=== PATIENT | male | born 1955 | race Caucasian/White ===

== ENCOUNTER 2017-07-25 16:06 | Outpatient (CLI) | payer OTHER | END 2017-07-25 16:07 | disposition home or self-care (01) | LOC: CTENTCT 16:06 | PROVIDERS: ATTEND Specialist | DX: J32.9 Chronic sinusitis, unspecified (principal) | CPT/HCPCS: 70486 ==

== ENCOUNTER 2018-08-07 13:03 | Outpatient (CLI) | payer MEDICARE, OTHER ==
--- NOTE | 2018-08-07 14:54 | CT ---
CT ABDOMEN AND PELVIS WITHOUT CONTRAST: Date: 08/07/18 PROVIDED CLINICAL HISTORY: Renal calculi. FINDINGS: Comparison made with the study dated 10/02/09. The visualized lung bases are free of significant opacity. There is a stable 4.0 mm nonobstructing left renal calculus. No additional urinary tract calculi are evident. The solid abdominal organs are suboptimally evaluated in the absence of IV contrast material , but demonstrate an otherwise unremarkable unenhanced CT appearance. Multiple gallstones are seen. There is no bowel dilatation, inflammatory fat stranding, free fluid, or lymph node enlargement appar ent. Vascular calcifications are seen. Prostate calcifications are seen. The osseous structures demonstrate no concerning lytic or blastic l esions. Postoperative changes are seen involving the lumbar spine. There is a small, fat-containing r ight inguinal hernia. IMPRESSION: 1. Stable 4.0 mm nonobstructing left renal calculus. 2. Cholelithiasis. POS: [facility]
== END 2018-08-07 13:04 | disposition home or self-care (01) ==
LOC: BICCT 13:03
PROVIDERS: ATTEND Urology
DX: N20.0 Calculus of kidney (principal); K80.20 Calculus of gallbladder without cholecystitis without obstruction
CPT/HCPCS: 74176

== ENCOUNTER 2019-08-24 12:30 | Outpatient (CLI) | payer MEDICARE, OTHER ==
--- NOTE | 2019-08-24 12:58 | RAD ---
XR Abdomen 1 View/KUB History: Renal calculi Comparison: CT examination 2018 Findings: Small calculi project over the interpolar left renal collecting system. No definite calculi project over the right renal collecting system. No abnormal calcifications projecting over the expected location of the ureters. Calcifications are noted over the pelvis, likely within the prostate. Posterior spinal fusion hardwar e with discectomy change lower lumbar spine. Impression: Similar appearance left renal calculus.
[2019-08-24 13:59] LABS: Anion Gap 16 mmol/L (10-20); BUN (Urea Nitrogen) 15 mg/dL (8.4-25.7); Calc. Creatinine Clearance 0 mL/min (70-130); Carbon Dioxide 21 mmol/L (23-31); Chloride 108 mmol/L (98-107); Estimated GFR-MDRD 54; Glucose 119 mg/dL (80-115); Potassium 4.3 mmol/L (3.5-5.1); Sodium 141 mmol/L (136-145)
== END 2019-08-24 12:31 | disposition home or self-care (01) ==
LOC: RAD 12:30
PROVIDERS: ATTEND Urology
DX: Z12.5 Encounter for screening for malignant neoplasm of prostate (principal); N20.0 Calculus of kidney; N40.1 Benign prostatic hyperplasia with lower urinary tract symptoms; N52.9 Male erectile dysfunction, unspecified; R39.11 Hesitancy of micturition
CPT/HCPCS: 74018; 80048; G0103; 36415; 81001

== ENCOUNTER 2019-08-26 15:11 | Outpatient (CLI) | payer MEDICARE, OTHER ==
[2019-08-26 16:57] LABS: INR-International Normal Ratio 1.2; PTT 30.6 SEC (22.9-36.1); Prothrombin Time 14.8 SEC (12.0-14.7)
[2019-08-26 16:59] LABS: Hemoglobin A1c 6.9 % (4.0-6.0)
[2019-08-26 17:13] LABS: Anion Gap 16 mmol/L (10-20); BUN (Urea Nitrogen) 15 mg/dL (8.4-25.7); Calc. Creatinine Clearance 0 mL/min (70-130); Calcium 9.5 mg/dL (7.8-10.44); Carbon Dioxide 21 mmol/L (23-31); Chloride 105 mmol/L (98-107); Estimated GFR-MDRD 54; Glucose 211 mg/dL (80-115); Potassium 4.1 mmol/L (3.5-5.1); Sodium 138 mmol/L (136-145)
[2019-08-26 17:24] LABS: Hemoglobin 16.4 g/dL (14.0-18.0); Mean Corpuscular HGB CONC 34.5 g/dL (32.0-36.0); Mean Corpuscular Hemoglobin 33.4 pg (27.0-31.0); Mean Corpuscular Volume 96.6 fL (78.0-98.0); Mean Platelet Volume 9.7 fL (7.4-10.4); Platelet Count 101 thou/uL (130-400); RBC Distribution Width 12.1 % (11.5-14.5); White Blood Cell (WBC) Count 4.6 thou/uL (4.8-10.8)
== END 2019-08-26 15:12 | disposition home or self-care (01) ==
LOC: LABBT 15:11
PROVIDERS: ATTEND Urology
DX: Z01.812 Encounter for preprocedural laboratory examination (principal); Z12.5 Encounter for screening for malignant neoplasm of prostate; N40.1 Benign prostatic hyperplasia with lower urinary tract symptoms; N20.0 Calculus of kidney; R39.11 Hesitancy of micturition; R39.15 Urgency of urination; N52.9 Male erectile dysfunction, unspecified; E11.22 Type 2 diabetes mellitus with diabetic chronic kidney disease; N18.9 Chronic kidney disease, unspecified
CPT/HCPCS: 80048; 83036; 85027; 85610; 85730; 93005; 93010

== ENCOUNTER 2019-09-01 08:53 | Day surgery (SDC) | payer MEDICARE, OTHER ==
[2019-08-26 15:35] VITALS: BMI 29.0
[2019-09-01] MEDS ORDERED: PROPOFOL 200 MG/20 ML VIAL ONE (09:42)
[2019-09-01] MEDS ORDERED: Lidocaine 1% PF 5 ML VIAL ONE (09:42)
[2019-09-01] MEDS ORDERED: ePHEDrine/0.9% NaCl/PF SYRINGE 50 mg/10 ml ONE ×2 (09:42→12:07)
[2019-09-01] MEDS ORDERED: Levofloxacin 500 mg/D5W 100 ml Premix Bag ONE (10:09)
[2019-09-01] MEDS ORDERED: Fentanyl 100 MCG/2 ML VIAL ONE (11:09)
[2019-09-01] MEDS ORDERED: Phenazopyridine HCl 97.5 MG TABLET ONE (13:08)
[2019-09-01] MEDS ORDERED: HYDROcodone/Acetaminophen 5/325 mg Tablet ONE (13:08)
--- NOTE | 2019-09-01 13:59 | OP ---
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 PROCEDURES PERFORMED: Cystoscopy, UroLift implant. ANESTHESIA: TIVA. COMPLICATIONS: None apparent. DISPOSITION: To recovery room in stable condition. INDICATIONS FOR PROCEDURE AND HISTORY: Mr. Sherwood is a 64-year-old male with history of BPH symptoms on Uroxatral, continues to be bothered by retrograde ejaculation, therefore desires options of proceeding with UroLift as he desires to be off his medical therapy. The patient also has frequency, urgency. I informed the patient that as he does have glucosuria medication induced, frequency or urgency, it is likely multifactorial and may persist despite BPH surgery. With all risks and benefits outlined including options of observation, he desires to proceed with UroLift. Risks and complication have been discussed with him in detail. DESCRIPTION OF PROCEDURE: After an informed consent was signed, the patient was taken to the operating room, placed in a dorsal lithotomy position with the genital area prepped and draped in the usual surgical sterile fashion. A 21-Lebanese cystoscope was utilized for cystoscopy, which demonstrated occult bulbar urethral stricture, however, this was nonobstructing and the scope was easily able to be passed. At this time, the prostatic urethra was entered and staged and appropriate intraoperative photos were taken demonstrating bilobar hyperplasia, mildly obstructing. The bladder was entered, which demonstrated normal ureteral orifices in anatomical location with bladder trabeculation consistent with chronic outlet obstruction. We then transitioned to UroLift device with a visual obturator. We implanted the left lateral lobe first. His prostatic urethra was treated with two implants on the left, four on the right with total of 6 implants. His prostate appeared to be quite mobile/ soft, therefore four implants were utilized on the right to appropriately raise left his prostatic urethra opening for wide bladder neck. He tolerated the procedure well. An 18-Lebanese 3-way Barakat catheter was placed. He did have prostatic urethral mucosa inflammation, given such indwelling Barakat catheter will be placed and remained in situ until tomorrow and anticipate Barakat catheter to be removed tomorrow morning for a voiding trial. He is discharged with Levaquin 500 mg one p.o. daily for 3 days, Azo p.r.n. for dysuria. He is advised to continue his BPH medications for now. Job ID: [id number] MTDD
[2019-09-01] MEDS ORDERED: Lidocaine Viscous Sol 2% 15 ml UD Cup ONE (14:11)
== END 2019-09-01 14:55 | disposition home or self-care (01) ==
LOC: SDC 08:53
PROVIDERS: ATTEND Urology
PROC: 0T7D8DZ Dilation of Urethra with Intraluminal Device, Via Natural or Artificial Opening Endoscopic (ICD-10-PCS; principal; 2019-09-01)
DX: N40.1 Benign prostatic hyperplasia with lower urinary tract symptoms (principal); R35.0 Frequency of micturition; R39.15 Urgency of urination; R39.11 Hesitancy of micturition; R35.1 Nocturia; R39.12 Poor urinary stream; N52.9 Male erectile dysfunction, unspecified; N20.0 Calculus of kidney; I10 Essential (primary) hypertension; E78.00 Pure hypercholesterolemia, unspecified; J45.909 Unspecified asthma, uncomplicated; K21.9 Gastro-esophageal reflux disease without esophagitis; M19.90 Unspecified osteoarthritis, unspecified site; F41.9 Anxiety disorder, unspecified; G89.29 Other chronic pain; M54.5 Low back pain; E78.5 Hyperlipidemia, unspecified; G47.33 Obstructive sleep apnea (adult) (pediatric); Z79.4 Long term (current) use of insulin; Z79.899 Other long term (current) drug therapy; Z88.8 Allergy status to other drugs, medicaments and biological substances; Z95.5 Presence of coronary angioplasty implant and graft
CPT/HCPCS: C1889; C9740; J1956; J2001; J2704; J3010

== ENCOUNTER 2019-10-19 15:00 | Outpatient (CLI) | payer MEDICARE, OTHER ==
--- NOTE | 2019-10-20 10:35 | MRI ---
MRI OF THE RIGHT THUMB WITHOUT CONTRAST: Date: 10/19/2019 INDICATION: History of injury to digital nerve of right thumb with complaints of right thumb pain and difficulty bending the right thumb. Palpable nodule is reportedly felt at the base of the thumb marked with a sanchez rface marker. COMPARISON: None. FINDINGS: Surface marker overlies the palmar aspect of the thumb MCP joint. Underlying this is an intact flexor tendon to the right thumb. There is a very small amount of fluid distention into the flexor tendon s khoi. No full thickness disruption is evident. The thenar musculature appears within normal limits. No visible soft tissue mass is noted. The radial digital neurovasculature appears within normal limit s. The ulnar aspect of the digital neurovascular of the thumb is not as well seen. The extensor tendo n appears intact. The adductor tendon appears intact. The ulnar collateral and radial collateral liga ment MCP as well as collateral ligament of IP joint appears intact. There is mild first CMC osteoarth rosis. IMPRESSION: 1. Mild flexor tendon synovitis of the FPL. 2. Mild first CMC osteoarthrosis. POS: [facility]
== END 2019-10-19 15:01 | disposition home or self-care (01) ==
LOC: BICMRI 15:00
PROVIDERS: ATTEND Orthopaedic Surgery Hand Surgery
DX: S64.40XA Injury of digital nerve of unspecified finger, initial encounter (principal); M18.11 Unilateral primary osteoarthritis of first carpometacarpal joint, right hand; M65.841 Other synovitis and tenosynovitis, right hand

== ENCOUNTER 2020-09-22 05:55 | Day surgery (SDC) | payer MEDICARE, OTHER ==
[2020-09-20 11:27] VITALS: BMI 29.0
[2020-09-22] MEDS ORDERED: Thrombin 5000 UNITS/5 ML VIAL ONE (06:35)
[2020-09-22] MEDS ORDERED: Ondansetron PF 4 MG/2 ML Vial ONE ×2 (07:12→11:25)
[2020-09-22] MEDS ORDERED: Fentanyl 100 MCG/2 ML VIAL ONE ×2 (07:13→11:54)
[2020-09-22] MEDS ORDERED: Midazolam HCl 2 mg/2 ml Vial ONE (07:13)
[2020-09-22] MEDS ORDERED: HYDROmorphone 2 MG/ML VIAL ONE (07:14)
[2020-09-22] MEDS ORDERED: Ketamine 50 MG/ML (10ML VIAL) ONE (07:14)
[2020-09-22] MEDS ORDERED: SUGAMMADEX SODIUM 200 MG/2 ML VIAL ONE (09:57)
[2020-09-22] MEDS ORDERED: Acetaminophen/Codeine 30-300mg Tablet PO PRN (09:59)
[2020-09-22] MEDS ORDERED: traMADol HCl 50 MG TAB PO PRN (09:59)
[2020-09-22] MEDS ORDERED: Bisacodyl 10 MG SUPP PR PRN (09:59)
[2020-09-22] MEDS ORDERED: Acetaminophen 325 MG TAB PO PRN (09:59)
[2020-09-22] MEDS ORDERED: tiZANidine HCl 4 MG TAB PO PRN (09:59)
[2020-09-22] MEDS ORDERED: Morphine 2 MG/ML VIAL SLOW IVP PRN (09:59)
[2020-09-22] MEDS ORDERED: Ondansetron PF 4 MG/2 ML Vial IVP PRN (09:59)
[2020-09-22] MEDS ORDERED: Milk Of Magnesia 30 ML UDCUP PO PRN (09:59)
[2020-09-22] MEDS ORDERED: Loratadine 10 MG TAB PO PRN (10:02)
[2020-09-22] MEDS ORDERED: Diclofenac 1% 100 GM GEL TP PRN (10:02)
[2020-09-22] MEDS ORDERED: SUMAtriptan Succinate 25 MG TAB PO PRN (10:02)
[2020-09-22] MEDS ORDERED: Ondansetron HCl/PF 4 MG/2 ML Vial IVP PRN (10:15)
[2020-09-22] MEDS ORDERED: Promethazine HCl 25 MG/ML VIAL IM PRN (10:15)
[2020-09-22] MEDS ORDERED: HYDROmorphone 2 MG/ML VIAL SLOW IVP PRN (10:15)
[2020-09-22] MEDS ORDERED: Meperidine HCl/PF 25 MG/ML VIAL SLOW IVP PRN (10:15)
[2020-09-22] MEDS ORDERED: Morphine Sulfate 2 MG/ML SYRINGE SLOW IVP PRN (10:15)
--- NOTE | 2020-09-22 10:25 | OP ---
DATE OF PROCEDURE: 09/22/2020 PREPARED FOODS ASSOCIATE: Katrina Garcia PA-C LOCATION: OR-11. PREPROCEDURE DIAGNOSES: Low back and leg pain with disk extrusion laterally, prior lumbar instrumented fusion at outside institution with proximal adjacent segment stenosis. POSTPROCEDURE DIAGNOSES: Low back and leg pain with disk extrusion laterally, prior lumbar instrumented fusion at outside institution with proximal adjacent segment stenosis. PROCEDURES PERFORMED: 1. L2-L3 laminectomy, partial facetectomy, foraminotomy. 2. Right L2-L3 transfacet diskectomy for decompression of the exiting right L2 nerve root with lateral and far-lateral decompression, transfacet diskectomy. A modifier 59 should be added to this component of the surgery as this was separate from the L2-L3 laminectomy. 3. Bilateral L3-L4 revision hemilaminotomies and foraminotomies. 4. Use of operative microscope for microdissection and then also modifier 50 should be added as this was bilateral surgery at L3-L4. DESCRIPTION OF PROCEDURE: After informed consent was obtained from the patient, the patient was brought to the OR. Proper patient, pause, and identification were carried out. He was placed under excellent general endotracheal anesthesia and positioned prone on the OR table. All appropriate points were padded. We identified the L2, L3, L4 dorsal spines. A linear jamil was made over this region. This area was sterilely cleansed, prepared, and draped. Proper patient, pause, and identification were carried out. The wound was then opened with a combination of sharp, monopolar, and blunt dissection. The L2, L3, L4 dorsal spines and lamina were exposed. Revision work was identified in the L3-L4 segment. We then identified with localization confirming our area of interest, then performed L2-L3 laminectomy, partial facetectomy, foraminotomy. We then turned our attention to a right L2-L3 transfacet diskectomy with work in the exiting right L2 foramen to decompress the lateral disk extrusion, the far-lateral disk extrusion at the right L2-L3 segment via transfacet diskectomy. We then turned our attention to bilateral L3-L4 revision hemilaminotomy, foraminotomy, although this was done with the microscope for microdissection. We then had excellent decompression of common dural tube and nerve roots. Copious irrigation occurred throughout as did maximizing hemostasis. The wound was then closed in anatomic layers following sprinkling of vancomycin powder. The patient emerged from anesthesia. Job ID: [id number]
[2020-09-22] MEDS ORDERED: Ketorolac Tromethamine 30 MG/ML VIAL ONE (11:25)
[2020-09-22] MEDS ORDERED: PROPOFOL 200 MG/20 ML VIAL ONE (11:25)
[2020-09-22] MEDS ORDERED: Glycopyrrolate 0.2 MG/ML 5 ML SYRINGE ONE (11:25)
[2020-09-22] MEDS ORDERED: Rocuronium Bromide 10 MG/ML (10ML VIAL) ONE (11:25)
[2020-09-22] MEDS ORDERED: ePHEDrine 50 MG/ML VIAL ONE (11:25)
[2020-09-22] MEDS ORDERED: diphenhydrAMINE 50 MG/ML VIAL ONE (11:25)
[2020-09-22] MEDS: Sodium Chloride 0.9% 1,000 ML IV SCH ×2 (14:10→22:29)
[2020-09-22] MEDS: CEFAZOLIN 2 GM in Premix Bag 1 BAG IVPB SCH ×2 (14:43→21:26)
[2020-09-22] MEDS ORDERED: INSULIN GLARGINE HUM REC ANLOG SC SCH (15:00)
[2020-09-22] MEDS ORDERED: Insulin Glargine 35 UNITS in Pre-Filled Syringe 1 EACH SC SCH (15:00)
[2020-09-22] MEDS ORDERED: [UNRECOGNIZED DRUG - OTHER] SC SCH (15:00)
[2020-09-22] MEDS ORDERED: HumaLOG 300 UNITS/3 ML VIAL SC SCH (15:00)
[2020-09-22] MEDS ORDERED: Dextrose 5% in Water 1,000 ML IV PRN (18:15)
[2020-09-22] MEDS ORDERED: Dextrose 50% Abboject 50 ML SYRINGE IVP PRN (18:15)
[2020-09-22] MEDS: HumaLOG 300 UNITS/3 ML VIAL SC PRN (18:21)
[2020-09-22] MEDS: HYDROcodone/Acetaminophen 7.5/325 mg Tablet PO PRN (20:39)
[2020-09-22] MEDS: Simvastatin 10 MG TAB PO SCH (20:41)
[2020-09-22] MEDS: PRE FILLED SC SCH (20:41)
[2020-09-22] MEDS: INSULIN GLARGINE SC SCH (20:41)
[2020-09-22] MEDS: Empagliflozin 25 MG TAB PO SCH (20:41)
[2020-09-22] MEDS: traZODone HCl 50 MG TAB PO SCH (20:41)
[2020-09-22] MEDS: HumaLOG 300 UNITS/3 ML VIAL SC SCH (20:42)
[2020-09-22] MEDS: Transdermal Patch Removal TOP SCH (20:43)
[2020-09-23] MEDS: Levothyroxine Sodium 25 MCG TAB PO SCH (05:14)
[2020-09-23] MEDS: HYDROcodone/Acetaminophen 7.5/325 mg Tablet PO PRN (05:14)
[2020-09-23] MEDS: HumaLOG 300 UNITS/3 ML VIAL SC PRN (05:33)
[2020-09-23 05:59] LABS: #Lymphocytes 1.7 thou/uL (1.20-3.40); #Monocytes 0.7 thou/uL (0.11-0.59); #Neutrophils 5.2 thou/uL (1.40-6.50); %Basophils 0.2 % (0.0-1.0); %Eosinophils 0.3 % (0.0-10.0); %Lymphocytes 22.6 % (21.0-51.0); %Monocytes 9.2 % (0.0-10.0); %Neutrophils 67.8 % (42.0-75.0); Hemoglobin 14.4 g/dL (14.0-18.0); Mean Corpuscular HGB CONC 33.3 g/dL (32.0-36.0); Mean Corpuscular Hemoglobin 32.7 pg (27.0-31.0); Mean Corpuscular Volume 98.1 fL (78.0-98.0); Mean Platelet Volume 8.1 fL (7.4-10.4); Platelet Count 98 thou/uL (130-400); RBC Distribution Width 12.5 % (11.5-14.5); Red Blood Cell (RBC) Count 4.41 mill/uL (4.70-6.10); White Blood Cell (WBC) Count 7.7 thou/uL (4.8-10.8)
[2020-09-23] MEDS ORDERED: Acetaminophen/Codeine 30-300mg Tablet PO PRN (08:27)
[2020-09-23] MEDS ORDERED: HYDROcodone/Acetaminophen 10/325 mg Tablet PO PRN (08:28)
[2020-09-23] MEDS: INSULIN GLARGINE SC SCH ×2 (08:38→21:16)
[2020-09-23] MEDS: PRE FILLED SC SCH ×2 (08:38→21:16)
[2020-09-23] MEDS: DULoxetine 30 MG CAP PO SCH (08:38)
[2020-09-23] MEDS: HumaLOG 300 UNITS/3 ML VIAL SC SCH ×3 (08:39→21:16)
--- NOTE | 2020-09-23 08:42 | PRG ---
DATE OF SERVICE: 09/23/2020 SUBJECTIVE: The patient is postoperative day #1, status post L2 through L4 laminectomy. Following the surgery, he was transitioned to the Med/Surg floor. He has had some issues with pain control overnight. Most of his pain is located near the surgical site as anticipated. He has no radicular features, numbness, or weakness. He is not having any bowel or bladder issues and is voiding appropriately postoperatively. He is tolerating a regular diet. OBJECTIVE: On exam this morning, he is sitting up in the bed, in no acute distress. He is enjoying his breakfast. He moves all 4s easily in the bed. No incisional issues. PLAN: We will go ahead and add Chester to his pain regimen. I have also increased his p.r.n. Tylenol #3 dosage and he can have either depending on which provides better pain control. Will work on moblizing more and I am hopeful that pt can transition to home tomorrow. Job ID: [id number] MTDD
[2020-09-23] MEDS: Lidocaine 5% Patch TD SCH (09:43)
[2020-09-23] MEDS: Acetaminophen/Codeine 30-300mg Tablet PO PRN ×3 (09:43→21:14)
[2020-09-23] MEDS: Fenofibrate Nanocrystallized 145 MG TAB PO SCH (09:43)
[2020-09-23] MEDS: Sodium Chloride 0.9% 1,000 ML IV SCH ×2 (12:37→22:22)
--- NOTE | 2020-09-23 18:29 | PRG ---
DATE OF SERVICE: 09/23/2020 SUBJECTIVE: Mr. Sherwood is resting comfortably. He had some pain control issues overnight and is not quite up to being discharged today. We will focus on mobilization and pain control, and I am optimistic for dismissal in the morning. Job ID: [id number]
[2020-09-23] MEDS: Simvastatin 10 MG TAB PO SCH (21:15)
[2020-09-23] MEDS: traZODone HCl 50 MG TAB PO SCH (21:15)
[2020-09-23] MEDS: Empagliflozin 25 MG TAB PO SCH (21:15)
[2020-09-23] MEDS: Transdermal Patch Removal TOP SCH (22:21)
[2020-09-24] MEDS: Acetaminophen/Codeine 30-300mg Tablet PO PRN ×2 (04:05→08:52)
[2020-09-24] MEDS: Levothyroxine Sodium 25 MCG TAB PO SCH (05:34)
[2020-09-24] MEDS: PRE FILLED SC SCH (08:46)
[2020-09-24] MEDS: DULoxetine 30 MG CAP PO SCH (08:46)
[2020-09-24] MEDS: INSULIN GLARGINE SC SCH (08:46)
[2020-09-24] MEDS: HumaLOG 300 UNITS/3 ML VIAL SC SCH (08:46)
[2020-09-24] MEDS: Fenofibrate Nanocrystallized 145 MG TAB PO SCH (09:44)
[2020-09-24] MEDS: Lidocaine 5% Patch TD SCH (09:44)
[2020-09-24 12:07] VITALS: BP 116/73; TEMP 97.6
--- NOTE | 2020-09-25 07:41 | DIS ---
DATE OF ADMISSION: 09/22/2020 DATE OF DISCHARGE: 09/24/2020 PROCEDURE: L2 to L4 laminectomy. DISCHARGE SUMMARY: Patient is a 65-year-old male recently evaluated in the office by Dr. Adams's team for progressive back and claudicatory leg pain. He was found to have significant stenosis from L2 to L4 and underwent decompression at this level. Following the surgery, he was transitioned to the Med/Surg floor where his pain has improved during his admission. He is now tolerating it well on p.o. medications, he is also tolerating regular diet, and voiding appropriately. He is ambulating easily in the hallways. We will go ahead and dismiss to home. I have discussed home care precautions. We will have the patient follow up with Dr. Adams's team in 2 weeks. He has been sent scripts for hydrocodone and already has Tylenol No. 4 as well as tramadol at home to take for postoperative pain. Job ID: [id number]
== END 2020-09-24 14:45 | disposition home or self-care (01) ==
LOC: SDC 05:55 → SURG A 12:31 → SDC 09-24 14:45
PROVIDERS: ATTEND Surgery
PROC: 01NB0ZZ Release Lumbar Nerve, Open Approach (ICD-10-PCS; principal; 2020-09-22)
PROC: 0ST20ZZ Resection of Lumbar Vertebral Disc, Open Approach (ICD-10-PCS; 2020-09-22)
DX: M51.16 Intervertebral disc disorders with radiculopathy, lumbar region (principal); M48.062 Spinal stenosis, lumbar region with neurogenic claudication; Z79.4 Long term (current) use of insulin; Z79.899 Other long term (current) drug therapy; Z88.8 Allergy status to other drugs, medicaments and biological substances; Z98.1 Arthrodesis status
CPT/HCPCS: 36415; 36416; 76000; 85025; 86850; 86900; 86901; J0690; J1170; J1200; J1815; J1885; J2250; J2405; J2704; J3010; J3370; J3490

== ENCOUNTER 2023-09-04 08:08 | Outpatient (CLI) | payer MEDICARE, OTHER | END 2023-09-04 08:09 | disposition home or self-care (01) | LOC: NM 08:08 | PROVIDERS: ATTEND Psychiatry & Neurology Neurology | DX: R29.818 Other symptoms and signs involving the nervous system (principal); R25.1 Tremor, unspecified | CPT/HCPCS: 78803; A9584 ×2 ==

== ENCOUNTER 2025-04-23 05:49 | Inpatient (IN) | payer MEDICARE, OTHER ==
[2025-04-23 06:31] LABS: #Basophils 0.03 10x3/uL (0.0-0.2); #Eosinophils 0.18 10x3/uL (0.0-0.7); #Monocytes 0.37 10x3/uL (0.11-0.59); #Neutrophils 1.68 10x3/uL (1.40-6.50); %Basophils 0.8 % (0.0-1.0); %Eosinophils 4.5 % (0.0-10.0); %Lymphocytes 43.1 % (21.0-51.0); %Monocytes 9.3 % (0.0-10.0); %Neutrophils 42.0 % (42.0-75.0); Hematocrit 47.9 % (42.0-52.0); Hemoglobin 15.9 g/dL (14.0-18.0); Mean Corpuscular Hemoglobin 32.6 pg (27.0-31.0); Mean Corpuscular Volume 98.2 fL (78.0-98.0); Platelet Count 68 10x3/uL (130-400); Red Blood Cell (RBC) Count 4.88 mill/uL (4.70-6.10); White Blood Cell (WBC) Count 3.99 10x3/uL (4.8-10.8)
[2025-04-23 06:33] LABS: Lipase 75 U/L (8-78); Magnesium 1.8 mg/dL (1.6-2.6)
[2025-04-23 06:34] LABS: Acetaminophen Less than 10 mcg/mL (Less than 10); Salicylate Less than 8.0 mg/dL (Less than 8.0)
[2025-04-23 06:35] LABS: ALT (SGPT) 64 U/L (Less than 45); AST (SGOT) 42 U/L (11-34); Albumin 3.9 g/dL (3.1-4.5); Alkaline Phosphatase 90 U/L (40-110); Anion Gap 14 mmol/L (10-20); BUN (Urea Nitrogen) 23 mg/dL (8.4-25.7); Bilirubin, Total 0.6 mg/dL (0.3-1.2); Calc. Creatinine Clearance 0 mL/min (70-130); Calcium 9.3 mg/dL (7.8-10.44); Carbon Dioxide 23 mmol/L (23-31); Chloride 108 mmol/L (98-107); Globulin 2.8 g/dL (2.4-3.5); Glucose 146 mg/dL (83-110); Potassium 3.9 mmol/L (3.5-5.1); Sodium 141 mmol/L (136-145)
[2025-04-23 06:36] LABS: INR-International Normal Ratio 1.2; Prothrombin Time 14.9 sec (12.0-14.7)
[2025-04-23 06:37] LABS: PTT 29.9 sec (22.9-36.1)
[2025-04-23 06:48] LABS: Platelet Adequacy Comment Platelets Decreased; RBC Morphology Within Normal Limits
[2025-04-23 08:08] LABS: Actual Bicarbonate (HCO3v) 21.0 mEq/L (22-28); Base Excess -4.2 mEq/L (-2.0 to +3.0); Calcium, Ionized (venous) 1.16 mmol/L (1.16-1.32); Chloride (VBG) 105 mmol/L (98-106); Hematocrit-VBG 46 % (42.0-52.0); Hemoglobin (Hb) 15.8 g/dL (12.6-17.4); Potassium (VBG) 3.69 mmol/L (3.70-5.30); Sodium 140 mmol/L (133-146)
[2025-04-23 09:42] LABS: Cocaine Metabolite Screen Negative (Negative); THC/Cannabinoid Screen Negative (Negative); Tricyclic Screen Negative (Negative)
[2025-04-23 09:49] LABS: Bacteria/HPF None Seen HPF (None Seen); CAUTI Indications for Culture Alt mental st,lethar; Glucose, Urine (Dipstick) Greater than 1000 mg/dL (Negative); Leukocyte Negative Leu/uL (Negative); Protein, Urine (Dipstick) Negative (Neg-Trace); RBC/HPF 0-3 HPF (0-3); Specific Gravity, Urine 1.025 (1.002-1.036); WBC/HPF 0-3 HPF (0-3)
[2025-04-23 09:51] LABS: Urine Culture Reflex No No
[2025-04-23] MEDS ORDERED: Glucagon 1 MG/ML KIT ONE (10:16)
[2025-04-23] MEDS ORDERED: Aspirin Chewable 81 MG TAB ONE (10:24)
[2025-04-23] MEDS ORDERED: Electrolyte Replacement Protocol 1 EACH FS SCH (11:15)
[2025-04-23] MEDS ORDERED: Ondansetron PF 4 MG/2 ML Vial IVP PRN (11:15)
[2025-04-23] MEDS ORDERED: Glucagon 1 MG/ML KIT IM PRN (11:26)
[2025-04-23] MEDS ORDERED: Dextrose 50% Abboject 50 ML SYRINGE SLOW IVP PRN (11:26)
[2025-04-23] MEDS ORDERED: Iopamidol-370 76% 500 ML MDV (1 ML CHARGE) ONE (12:25)
[2025-04-23] MEDS: Acetaminophen 325 MG TAB PO SCH (14:40)
[2025-04-23] MEDS: Magnesium 2 GM/50 ML(in water) 2 GM in Premix 1 BAG IVPB SCH (14:40)
[2025-04-23 16:34] VITALS: BMI 22.8
[2025-04-23] MEDS: DorzolamidE/Timolol 2%/0.5% Ophth Soln 10 ml Bottle EA EYE SCH (20:21)
[2025-04-24 04:57] LABS: ALT (SGPT) 61 U/L (Less than 45); AST (SGOT) 45 U/L (11-34); Albumin 3.4 g/dL (3.1-4.5); Alkaline Phosphatase 75 U/L (40-110); Anion Gap 10 mmol/L (10-20); BUN (Urea Nitrogen) 14 mg/dL (8.4-25.7); Bilirubin, Total 0.9 mg/dL (0.3-1.2); Calc. Creatinine Clearance 90 mL/min (70-130); Calcium 8.9 mg/dL (7.8-10.44); Carbon Dioxide 24 mmol/L (23-31); Cardiac Risk 5.5 (Less than 4.5); Chloride 109 mmol/L (98-107); Cholesterol 169 mg/dl (< 200 Desired); Globulin 3.0 g/dL (2.4-3.5); Glucose 114 mg/dL (83-110); HDL Cholesterol 31 mg/dL (>60 Neg Risk); LDL Cholesterol, Calculated 85 mg/dL; Potassium 4.0 mmol/L (3.5-5.1); Sodium 139 mmol/L (136-145); Triglycerides 265 mg/dL (Less than 150)
[2025-04-24 05:12] LABS: #Basophils Less than 0.03 10x3/uL (0.0-0.2); #Eosinophils 0.18 10x3/uL (0.0-0.7); #Monocytes 0.44 10x3/uL (0.11-0.59); #Neutrophils 2.15 10x3/uL (1.40-6.50); %Basophils 0.4 % (0.0-1.0); %Eosinophils 3.8 % (0.0-10.0); %Lymphocytes 41.5 % (21.0-51.0); %Monocytes 9.2 % (0.0-10.0); %Neutrophils 44.9 % (42.0-75.0); Hematocrit 46.0 % (42.0-52.0); Hemoglobin 15.5 g/dL (14.0-18.0); Mean Corpuscular Hemoglobin 32.6 pg (27.0-31.0); Mean Corpuscular Volume 96.6 fL (78.0-98.0); Platelet Count 74 10x3/uL (130-400); Red Blood Cell (RBC) Count 4.76 mill/uL (4.70-6.10); White Blood Cell (WBC) Count 4.79 10x3/uL (4.8-10.8)
[2025-04-24] MEDS: Aspirin 81 mg Enteric Coated Tablet PO SCH (09:52)
[2025-04-24] MEDS: Pantoprazole 40 MG VIAL IVP SCH (09:53)
[2025-04-24] MEDS ORDERED: Methocarbamol 500 MG TAB PO PRN (13:32)
[2025-04-25] MEDS ORDERED: Metoprolol Succinate XL 25 MG ER.TAB PO SCH (09:00)
[2025-04-25 14:24] VITALS: BMI 22.6
[2025-04-25 16:42] VITALS: BP 145/86; TEMP 98.1
== END 2025-04-25 18:52 | disposition home or self-care (01) | DRG 69 ==
LOC: ERS 05:49 → ERHOLD 10:28 → 2SE 13:42 → OBSVTOIN 04-25 09:02
PROVIDERS: ADMIT Internal Medicine; ATTEND Hospitalist
PROC: XX20X89 Monitoring of Brain Electrical Activity, Computer-aided Detection and Notification, New Technology Group 9 (ICD-10-PCS; principal; 2025-04-25)
DX: G45.9 Transient cerebral ischemic attack, unspecified (principal); I69.951 Hemiplegia and hemiparesis following unspecified cerebrovascular disease affecting right dominant side; F03.93 Unspecified dementia, unspecified severity, with mood disturbance; N40.0 Benign prostatic hyperplasia without lower urinary tract symptoms; I25.10 Atherosclerotic heart disease of native coronary artery without angina pectoris; E78.5 Hyperlipidemia, unspecified; M54.9 Dorsalgia, unspecified; M19.90 Unspecified osteoarthritis, unspecified site; G43.909 Migraine, unspecified, not intractable, without status migrainosus; G47.30 Sleep apnea, unspecified; K74.60 Unspecified cirrhosis of liver; F31.9 Bipolar disorder, unspecified; F43.10 Post-traumatic stress disorder, unspecified; N18.9 Chronic kidney disease, unspecified; E11.22 Type 2 diabetes mellitus with diabetic chronic kidney disease; D69.6 Thrombocytopenia, unspecified; E78.1 Pure hyperglyceridemia; R00.1 Bradycardia, unspecified; Z98.890 Other specified postprocedural states; Z91.09 Other allergy status, other than to drugs and biological substances; Z88.8 Allergy status to other drugs, medicaments and biological substances; Z79.899 Other long term (current) drug therapy; Z79.890 Hormone replacement therapy; Z79.82 Long term (current) use of aspirin; Z79.84 Long term (current) use of oral hypoglycemic drugs; Z96.82 Presence of neurostimulator; I69.320 Aphasia following cerebral infarction
CPT/HCPCS: 36415; 36416; 70450; 70496; 70498; 71045; 72170; 74018; 80053; 80061; 80306; 80307; 81001; 82140; 82550; 82805; 83605; 83690; 83735; 83880; 84439; 84443; 84484; 85025; 85610; 85730; 87428; 93005; 93306; 93880; 95813; 96374; 96375; G0378; J1611; J2470; J3475; J7120; Q9967

== ENCOUNTER 2025-05-01 15:10 | Inpatient (IN) | payer MEDICARE, OTHER ==
[~2025-05-01 15:10] MED LIST: Iopamidol-370 76% 500 ML MDV (1 ML CHARGE) ONE
[2025-05-01] MEDS ORDERED: Communication Order-Pharmacy FS SCH (15:35)
[2025-05-01] MEDS ORDERED: Tenecteplase 50 MG ONE (15:35)
[2025-05-01 15:48] LABS: #Basophils Less than 0.03 10x3/uL (0.0-0.2); #Eosinophils 0.14 10x3/uL (0.0-0.7); #Monocytes 0.42 10x3/uL (0.11-0.59); #Neutrophils 1.78 10x3/uL (1.40-6.50); %Basophils 0.5 % (0.0-1.0); %Eosinophils 3.6 % (0.0-10.0); %Lymphocytes 39.5 % (21.0-51.0); %Monocytes 10.7 % (0.0-10.0); %Neutrophils 45.4 % (42.0-75.0); Hematocrit 44.6 % (42.0-52.0); Hemoglobin 15.0 g/dL (14.0-18.0); Mean Corpuscular Hemoglobin 32.5 pg (27.0-31.0); Mean Corpuscular Volume 96.5 fL (78.0-98.0); Platelet Count 72 10x3/uL (130-400); Red Blood Cell (RBC) Count 4.62 mill/uL (4.70-6.10); White Blood Cell (WBC) Count 3.92 10x3/uL (4.8-10.8)
[2025-05-01 15:55] LABS: INR-International Normal Ratio 1.3; PTT 33.4 sec (22.9-36.1); Prothrombin Time 16.4 sec (12.0-14.7)
[2025-05-01 15:56] LABS: ALT (SGPT) 49 U/L (Less than 45); AST (SGOT) 42 U/L (11-34); Albumin 3.7 g/dL (3.1-4.5); Alkaline Phosphatase 76 U/L (40-110); Anion Gap 14 mmol/L (10-20); BUN (Urea Nitrogen) 18 mg/dL (8.4-25.7); Bilirubin, Total 0.7 mg/dL (0.3-1.2); Calc. Creatinine Clearance 0 mL/min (70-130); Calcium 9.0 mg/dL (7.8-10.44); Carbon Dioxide 25 mmol/L (23-31); Chloride 105 mmol/L (98-107); Globulin 2.6 g/dL (2.4-3.5); Glucose 102 mg/dL (83-110); Potassium 4.0 mmol/L (3.5-5.1); Sodium 140 mmol/L (136-145)
[2025-05-01] MEDS ORDERED: Acetaminophen 325 MG TAB PO PRN (17:04)
[2025-05-01] MEDS ORDERED: Senokot S 8.6-50 MG TAB PO PRN (17:04)
[2025-05-01] MEDS ORDERED: niCARdipine 25 MG in Sodium Chloride 0.9% 250 ML 250 ML IVPB PRN (17:04)
[2025-05-01] MEDS ORDERED: hydrALAZINE 20 MG/ML VIAL SLOW IVP PRN (17:04)
[2025-05-01] MEDS ORDERED: Bisacodyl 10 MG SUPP PR PRN (17:04)
[2025-05-01] MEDS ORDERED: Glucagon 1 MG/ML KIT IM PRN (17:18)
[2025-05-01] MEDS ORDERED: Dextrose 50% Abboject 50 ML SYRINGE SLOW IVP PRN (17:18)
[2025-05-01 23:44] VITALS: BMI 23.2
[2025-05-02] MEDS: Pantoprazole 40 MG VIAL IVP SCH (08:48)
[2025-05-02 19:32] LABS: #Basophils Less than 0.03 10x3/uL (0.0-0.2); #Eosinophils 0.21 10x3/uL (0.0-0.7); #Monocytes 0.42 10x3/uL (0.11-0.59); #Neutrophils 2.30 10x3/uL (1.40-6.50); %Basophils 0.4 % (0.0-1.0); %Eosinophils 4.5 % (0.0-10.0); %Lymphocytes 36.7 % (21.0-51.0); %Monocytes 9.0 % (0.0-10.0); %Neutrophils 49.0 % (42.0-75.0); Hematocrit 51.1 % (42.0-52.0); Hemoglobin 17.6 g/dL (14.0-18.0); Mean Corpuscular Hemoglobin 32.8 pg (27.0-31.0); Mean Corpuscular Volume 95.2 fL (78.0-98.0); Platelet Count 73 10x3/uL (130-400); Red Blood Cell (RBC) Count 5.37 mill/uL (4.70-6.10); White Blood Cell (WBC) Count 4.69 10x3/uL (4.8-10.8)
[2025-05-02] MEDS ORDERED: Methocarbamol 500 MG TAB PO PRN (20:17)
[2025-05-02 20:30] LABS: ALT (SGPT) 57 U/L (Less than 45); AST (SGOT) 44 U/L (11-34); Albumin 4.1 g/dL (3.1-4.5); Alkaline Phosphatase 87 U/L (40-110); Bilirubin, Direct 0.4 mg/dL (0.1-0.3); Bilirubin, Total 1.3 mg/dL (0.3-1.2)
[2025-05-02 20:54] LABS: Anion Gap 20 mmol/L (10-20); BUN (Urea Nitrogen) 15 mg/dL (8.4-25.7); Calc. Creatinine Clearance 79 mL/min (70-130); Calcium 9.6 mg/dL (7.8-10.44); Carbon Dioxide 21 mmol/L (23-31); Cardiac Risk 4.4 (Less than 4.5); Chloride 104 mmol/L (98-107); Cholesterol 176 mg/dl (< 200 Desired); Glucose 103 mg/dL (83-110); HDL Cholesterol 40 mg/dL (>60 Neg Risk); LDL Cholesterol, Calculated 92 mg/dL; Magnesium 1.8 mg/dL (1.6-2.6); Potassium 4.3 mmol/L (3.5-5.1); Sodium 141 mmol/L (136-145); Triglycerides 222 mg/dL (Less than 150)
[2025-05-03 03:19] LABS: #Basophils 0.03 10x3/uL (0.0-0.2); #Eosinophils 0.20 10x3/uL (0.0-0.7); #Monocytes 0.46 10x3/uL (0.11-0.59); #Neutrophils 2.19 10x3/uL (1.40-6.50); %Basophils 0.6 % (0.0-1.0); %Eosinophils 4.1 % (0.0-10.0); %Lymphocytes 40.0 % (21.0-51.0); %Monocytes 9.5 % (0.0-10.0); %Neutrophils 45.6 % (42.0-75.0); Hematocrit 48.7 % (42.0-52.0); Hemoglobin 16.4 g/dL (14.0-18.0); Mean Corpuscular Hemoglobin 32.5 pg (27.0-31.0); Mean Corpuscular Volume 96.4 fL (78.0-98.0); Platelet Count 81 10x3/uL (130-400); Red Blood Cell (RBC) Count 5.05 mill/uL (4.70-6.10); White Blood Cell (WBC) Count 4.82 10x3/uL (4.8-10.8)
[2025-05-03 03:46] LABS: Anion Gap 15 mmol/L (10-20); BUN (Urea Nitrogen) 15 mg/dL (8.4-25.7); Calc. Creatinine Clearance 74 mL/min (70-130); Calcium 9.2 mg/dL (7.8-10.44); Carbon Dioxide 24 mmol/L (23-31); Chloride 104 mmol/L (98-107); Glucose 111 mg/dL (83-110); Magnesium 1.8 mg/dL (1.6-2.6); Potassium 4.2 mmol/L (3.5-5.1); Sodium 139 mmol/L (136-145)
[2025-05-03] MEDS: Aspirin 81 mg Enteric Coated Tablet PO SCH (09:22)
[2025-05-03] MEDS: DorzolamidE/Timolol 2%/0.5% Ophth Soln 10 ml Bottle EA EYE SCH (20:01)
[2025-05-04 04:10] LABS: #Basophils Less than 0.03 10x3/uL (0.0-0.2); #Eosinophils 0.19 10x3/uL (0.0-0.7); #Monocytes 0.56 10x3/uL (0.11-0.59); #Neutrophils 2.35 10x3/uL (1.40-6.50); %Basophils 0.4 % (0.0-1.0); %Eosinophils 3.7 % (0.0-10.0); %Lymphocytes 39.6 % (21.0-51.0); %Monocytes 10.8 % (0.0-10.0); %Neutrophils 45.3 % (42.0-75.0); Hematocrit 49.3 % (42.0-52.0); Hemoglobin 16.6 g/dL (14.0-18.0); Mean Corpuscular Hemoglobin 32.4 pg (27.0-31.0); Mean Corpuscular Volume 96.3 fL (78.0-98.0); Platelet Count 85 10x3/uL (130-400); Red Blood Cell (RBC) Count 5.12 mill/uL (4.70-6.10); White Blood Cell (WBC) Count 5.18 10x3/uL (4.8-10.8)
[2025-05-04 04:39] LABS: Anion Gap 16 mmol/L (10-20); BUN (Urea Nitrogen) 18 mg/dL (8.4-25.7); Calc. Creatinine Clearance 71 mL/min (70-130); Calcium 9.3 mg/dL (7.8-10.44); Carbon Dioxide 25 mmol/L (23-31); Chloride 106 mmol/L (98-107); Glucose 137 mg/dL (83-110); Magnesium 1.9 mg/dL (1.6-2.6); Potassium 3.9 mmol/L (3.5-5.1); Sodium 143 mmol/L (136-145)
[2025-05-04] MEDS: Pantoprazole 40 MG DR.TAB PO SCH (08:45)
[2025-05-04] MEDS: Aspirin 325 MG TAB PO SCH (08:45)
[2025-05-05] MEDS: Calcium Carbonate 500 MG ChewTAB PO PRN (21:57)
[2025-05-07 10:18] VITALS: BMI 22.9
[2025-05-07 11:44] VITALS: BP 119/68; TEMP 98.4
== END 2025-05-07 14:15 | disposition home health service (06) | DRG 62 ==
LOC: SUATTDRO 15:10 → ERS 15:10 → CCU 17:04 → 2SE 05-04 20:18
PROVIDERS: ADMIT Family Medicine; ATTEND Internal Medicine
PROC: 3E03317 Introduction of Other Thrombolytic into Peripheral Vein, Percutaneous Approach (ICD-10-PCS; principal; 2025-05-01)
PROC: XX20X89 Monitoring of Brain Electrical Activity, Computer-aided Detection and Notification, New Technology Group 9 (ICD-10-PCS; 2025-05-01)
DX: G45.9 Transient cerebral ischemic attack, unspecified (principal); G81.94 Hemiplegia, unspecified affecting left nondominant side; I69.951 Hemiplegia and hemiparesis following unspecified cerebrovascular disease affecting right dominant side; N40.0 Benign prostatic hyperplasia without lower urinary tract symptoms; I25.10 Atherosclerotic heart disease of native coronary artery without angina pectoris; E78.5 Hyperlipidemia, unspecified; M54.9 Dorsalgia, unspecified; G43.909 Migraine, unspecified, not intractable, without status migrainosus; G47.33 Obstructive sleep apnea (adult) (pediatric); D69.6 Thrombocytopenia, unspecified; R74.01 Elevation of levels of liver transaminase levels; Z66 Do not resuscitate; R29.734 NIHSS score 34; E03.9 Hypothyroidism, unspecified; F31.9 Bipolar disorder, unspecified; E11.22 Type 2 diabetes mellitus with diabetic chronic kidney disease; I12.9 Hypertensive chronic kidney disease with stage 1 through stage 4 chronic kidney disease, or unspecified chronic kidney disease; N18.9 Chronic kidney disease, unspecified; M19.90 Unspecified osteoarthritis, unspecified site; F43.10 Post-traumatic stress disorder, unspecified; Z98.890 Other specified postprocedural states; Z91.018 Allergy to other foods; Z88.8 Allergy status to other drugs, medicaments and biological substances; Z79.899 Other long term (current) drug therapy; Z79.82 Long term (current) use of aspirin; Z79.84 Long term (current) use of oral hypoglycemic drugs; Z79.890 Hormone replacement therapy; Z79.4 Long term (current) use of insulin; I69.920 Aphasia following unspecified cerebrovascular disease; Z96.82 Presence of neurostimulator
CPT/HCPCS: 36415; 36416; 70450; 70496; 70498; 71045; 80048; 80053; 80061; 80076; 83036; 83735; 84443; 84484; 85025; 85610; 85730; 86850; 86900; 86901; 93005; 94760; 95700; 95711; 95819; 95957; 96374; J1815; J2470; J3101; Q9967

== ENCOUNTER 2025-05-13 19:15 | Inpatient (IN) | payer MEDICARE, OTHER ==
[2025-05-13 20:27] LABS: Acetaminophen Less than 10 mcg/mL (Less than 10); Salicylate Less than 8.0 mg/dL (Less than 8.0)
[2025-05-13 21:46] LABS: ALT (SGPT) 62 U/L (Less than 45); AST (SGOT) 71 U/L (11-34); Albumin 4.0 g/dL (3.1-4.5); Alkaline Phosphatase 101 U/L (40-110); Anion Gap 15 mmol/L (10-20); BUN (Urea Nitrogen) 21 mg/dL (8.4-25.7); Bilirubin, Total 0.7 mg/dL (0.3-1.2); Calc. Creatinine Clearance 0 mL/min (70-130); Calcium 9.2 mg/dL (7.8-10.44); Carbon Dioxide 24 mmol/L (23-31); Chloride 108 mmol/L (98-107); Globulin 3.2 g/dL (2.4-3.5); Glucose 175 mg/dL (83-110); Potassium 3.8 mmol/L (3.5-5.1); Sodium 143 mmol/L (136-145)
[2025-05-13 21:50] LABS: INR-International Normal Ratio 1.3; Prothrombin Time 16.4 sec (12.0-14.7)
[2025-05-13 21:51] LABS: PTT 32.4 sec (22.9-36.1)
[2025-05-13 21:52] LABS: #Basophils 0.03 10x3/uL (0.0-0.2); #Eosinophils 0.16 10x3/uL (0.0-0.7); #Monocytes 0.32 10x3/uL (0.11-0.59); #Neutrophils 1.65 10x3/uL (1.40-6.50); %Basophils 0.8 % (0.0-1.0); %Eosinophils 4.5 % (0.0-10.0); %Lymphocytes 38.7 % (21.0-51.0); %Monocytes 9.0 % (0.0-10.0); %Neutrophils 46.7 % (42.0-75.0); Hematocrit 45.2 % (42.0-52.0); Hemoglobin 15.2 g/dL (14.0-18.0); Mean Corpuscular Hemoglobin 32.7 pg (27.0-31.0); Mean Corpuscular Volume 97.2 fL (78.0-98.0); Platelet Count 76 10x3/uL (130-400); Red Blood Cell (RBC) Count 4.65 mill/uL (4.70-6.10); White Blood Cell (WBC) Count 3.54 10x3/uL (4.8-10.8)
[2025-05-13] MEDS ORDERED: Calcium Carbonate 500 MG ChewTAB PO PRN (23:19)
[2025-05-13] MEDS ORDERED: Ondansetron PF 4 MG/2 ML Vial IVP PRN (23:19)
[2025-05-13] MEDS ORDERED: Glucagon 1 MG/ML KIT IM PRN (23:19)
[2025-05-13] MEDS ORDERED: Dextrose 50% Abboject 50 ML SYRINGE SLOW IVP PRN (23:19)
[2025-05-13] MEDS ORDERED: Senokot S 8.6-50 MG TAB PO PRN (23:19)
[2025-05-14 00:54] VITALS: BMI 22.4
[2025-05-14 01:03] LABS: CK (CPK) 42 U/L (30-200); Magnesium 1.7 mg/dL (1.6-2.6)
[2025-05-14 01:14] LABS: Actual Bicarbonate (HCO3v) 24.7 mEq/L (22-28); Base Excess -0.2 mEq/L (-2.0 to +3.0); Calcium, Ionized (venous) 1.16 mmol/L (1.16-1.32); Chloride (VBG) 105 mmol/L (98-106); Hematocrit-VBG 46 % (42.0-52.0); Hemoglobin (Hb) 15.5 g/dL (12.6-17.4); Potassium (VBG) 3.67 mmol/L (3.70-5.30); Sodium 142 mmol/L (133-146)
[2025-05-14 02:01] LABS: Glucose, Urine (Dipstick) Greater than 1000 mg/dL (Negative); Leukocyte Negative Leu/uL (Negative); Protein, Urine (Dipstick) Negative (Neg-Trace); RBC/HPF 0-3 HPF (0-3); Specific Gravity, Urine 1.042 (1.002-1.036)
[2025-05-14 04:30] LABS: ALT (SGPT) 53 U/L (Less than 45); AST (SGOT) 51 U/L (11-34); Albumin 3.6 g/dL (3.1-4.5); Alkaline Phosphatase 80 U/L (40-110); Anion Gap 11 mmol/L (10-20); BUN (Urea Nitrogen) 20 mg/dL (8.4-25.7); Bilirubin, Total 0.7 mg/dL (0.3-1.2); Calc. Creatinine Clearance 88 mL/min (70-130); Calcium 9.0 mg/dL (7.8-10.44); Carbon Dioxide 25 mmol/L (23-31); Cardiac Risk 3.0 (Less than 4.5); Chloride 109 mmol/L (98-107); Cholesterol 105 mg/dl (< 200 Desired); Globulin 2.5 g/dL (2.4-3.5); Glucose 108 mg/dL (83-110); HDL Cholesterol 35 mg/dL (>60 Neg Risk); LDL Cholesterol, Calculated 52 mg/dL; Potassium 3.4 mmol/L (3.5-5.1); Sodium 142 mmol/L (136-145); Triglycerides 89 mg/dL (Less than 150)
[2025-05-14] MEDS: Aspirin 325 MG TAB PO SCH (08:47)
[2025-05-14] MEDS: Pantoprazole 40 MG DR.TAB PO SCH (08:47)
[2025-05-14] MEDS ORDERED: Enoxaparin 40 MG (0.4 mL) SYRINGE SC SCH (09:00)
[2025-05-14] MEDS: DorzolamidE/Timolol 2%/0.5% Ophth Soln 10 ml Bottle EA EYE SCH (11:10)
[2025-05-14] MEDS: Ipratropium Bromide 0.03% Nasal Inhaler 30 ml Bottle EA NARE SCH (11:10)
[2025-05-15 04:51] LABS: #Basophils Less than 0.03 10x3/uL (0.0-0.2); #Eosinophils 0.19 10x3/uL (0.0-0.7); #Monocytes 0.34 10x3/uL (0.11-0.59); #Neutrophils 2.15 10x3/uL (1.40-6.50); %Basophils 0.5 % (0.0-1.0); %Eosinophils 4.4 % (0.0-10.0); %Lymphocytes 37.0 % (21.0-51.0); %Monocytes 7.9 % (0.0-10.0); %Neutrophils 50.0 % (42.0-75.0); Hematocrit 43.6 % (42.0-52.0); Hemoglobin 14.8 g/dL (14.0-18.0); Mean Corpuscular Hemoglobin 32.6 pg (27.0-31.0); Mean Corpuscular Volume 96.0 fL (78.0-98.0); Platelet Count 75 10x3/uL (130-400); Red Blood Cell (RBC) Count 4.54 mill/uL (4.70-6.10); White Blood Cell (WBC) Count 4.30 10x3/uL (4.8-10.8)
[2025-05-15 04:59] LABS: Anion Gap 11 mmol/L (10-20); BUN (Urea Nitrogen) 17 mg/dL (8.4-25.7); Calc. Creatinine Clearance 87 mL/min (70-130); Calcium 9.0 mg/dL (7.8-10.44); Carbon Dioxide 23 mmol/L (23-31); Chloride 110 mmol/L (98-107); Glucose 120 mg/dL (83-110); Magnesium 1.8 mg/dL (1.6-2.6); Potassium 3.9 mmol/L (3.5-5.1); Sodium 140 mmol/L (136-145)
[2025-05-16 03:47] LABS: #Basophils 0.03 10x3/uL (0.0-0.2); #Eosinophils 0.20 10x3/uL (0.0-0.7); #Monocytes 0.36 10x3/uL (0.11-0.59); #Neutrophils 2.01 10x3/uL (1.40-6.50); %Basophils 0.7 % (0.0-1.0); %Eosinophils 4.7 % (0.0-10.0); %Lymphocytes 38.4 % (21.0-51.0); %Monocytes 8.5 % (0.0-10.0); %Neutrophils 47.5 % (42.0-75.0); Hematocrit 45.5 % (42.0-52.0); Hemoglobin 15.2 g/dL (14.0-18.0); Mean Corpuscular Hemoglobin 32.0 pg (27.0-31.0); Mean Corpuscular Volume 95.8 fL (78.0-98.0); Platelet Count 71 10x3/uL (130-400); Red Blood Cell (RBC) Count 4.75 mill/uL (4.70-6.10); White Blood Cell (WBC) Count 4.24 10x3/uL (4.8-10.8)
[2025-05-16 03:55] LABS: Anion Gap 17 mmol/L (10-20); BUN (Urea Nitrogen) 20 mg/dL (8.4-25.7); Calc. Creatinine Clearance 81 mL/min (70-130); Calcium 8.9 mg/dL (7.8-10.44); Carbon Dioxide 20 mmol/L (23-31); Chloride 109 mmol/L (98-107); Glucose 129 mg/dL (83-110); Potassium 3.8 mmol/L (3.5-5.1); Sodium 142 mmol/L (136-145)
[2025-05-17] MEDS: Acetaminophen 325 MG TAB PO PRN (15:28)
[2025-05-17] MEDS: FLU (Fluad Triv) 25-26 (65UP)PF 45 MCG/0.5 ML Syringe IM ONE (15:29)
[2025-05-17 15:57] VITALS: BP 109/69; TEMP 97.9
== END 2025-05-17 17:15 | disposition home or self-care (01) | DRG 884 ==
LOC: ERS 19:15 → 2SE 22:52 → OBSVTOIN 05-14 13:53
PROVIDERS: ADMIT Student in an Organized Health Care Education/Training Program; ATTEND Internal Medicine
PROC: XX20X89 Monitoring of Brain Electrical Activity, Computer-aided Detection and Notification, New Technology Group 9 (ICD-10-PCS; principal; 2025-05-14)
PROC: 3E0234Z Introduction of Serum, Toxoid and Vaccine into Muscle, Percutaneous Approach (ICD-10-PCS; 2025-05-17)
DX: F03.93 Unspecified dementia, unspecified severity, with mood disturbance (principal); F05 Delirium due to known physiological condition; I69.351 Hemiplegia and hemiparesis following cerebral infarction affecting right dominant side; F03.94 Unspecified dementia, unspecified severity, with anxiety; F31.9 Bipolar disorder, unspecified; F43.10 Post-traumatic stress disorder, unspecified; N40.0 Benign prostatic hyperplasia without lower urinary tract symptoms; I25.10 Atherosclerotic heart disease of native coronary artery without angina pectoris; E11.9 Type 2 diabetes mellitus without complications; E78.5 Hyperlipidemia, unspecified; I10 Essential (primary) hypertension; M54.50 Low back pain, unspecified; M19.90 Unspecified osteoarthritis, unspecified site; G43.909 Migraine, unspecified, not intractable, without status migrainosus; G47.30 Sleep apnea, unspecified; R74.01 Elevation of levels of liver transaminase levels; I65.23 Occlusion and stenosis of bilateral carotid arteries; F03.918 Unspecified dementia, unspecified severity, with other behavioral disturbance; R53.1 Weakness; G89.29 Other chronic pain; D69.6 Thrombocytopenia, unspecified; E03.9 Hypothyroidism, unspecified; Z98.890 Other specified postprocedural states; Z91.018 Allergy to other foods; Z88.8 Allergy status to other drugs, medicaments and biological substances; Z79.890 Hormone replacement therapy; Z88.5 Allergy status to narcotic agent; Z23 Encounter for immunization
CPT/HCPCS: 36415; 36416; 70450; 70496; 70498; 71045; 80048; 80053; 80061; 80307; 81001; 82140; 82550; 82805; 83036; 83735; 84146; 84443; 84484; 85025; 85610; 85730; 90653; 93005; 94760; 95812; 95813; 95816; 96374; 96375; G0378; J1815; J2060; J7120; Q9967

== ENCOUNTER 2025-05-21 21:03 | Emergency (ER) | payer MEDICARE, OTHER ==
[~2025-05-21 21:03] MED LIST changes: +Iopamidol 370 76% 100 ML VIAL ONE; -Iopamidol-370 76% 500 ML MDV (1 ML CHARGE) ONE
[2025-05-21 21:43] LABS: #Basophils Less than 0.03 10x3/uL (0.0-0.2); #Eosinophils 0.18 10x3/uL (0.0-0.7); #Monocytes 0.33 10x3/uL (0.11-0.59); #Neutrophils 1.76 10x3/uL (1.40-6.50); %Basophils 0.6 % (0.0-1.0); %Eosinophils 5.0 % (0.0-10.0); %Lymphocytes 35.8 % (21.0-51.0); %Monocytes 9.2 % (0.0-10.0); %Neutrophils 49.1 % (42.0-75.0); Hematocrit 43.2 % (42.0-52.0); Hemoglobin 14.8 g/dL (14.0-18.0); Mean Corpuscular Hemoglobin 32.5 pg (27.0-31.0); Mean Corpuscular Volume 94.9 fL (78.0-98.0); Platelet Count 67 10x3/uL (130-400); Red Blood Cell (RBC) Count 4.55 mill/uL (4.70-6.10); White Blood Cell (WBC) Count 3.58 10x3/uL (4.8-10.8)
[2025-05-21 21:55] LABS: ALT (SGPT) 59 U/L (Less than 45); AST (SGOT) 56 U/L (11-34); Albumin 3.5 g/dL (3.1-4.5); Alkaline Phosphatase 88 U/L (40-110); Anion Gap 11 mmol/L (10-20); BUN (Urea Nitrogen) 22 mg/dL (8.4-25.7); Bilirubin, Total 0.6 mg/dL (0.3-1.2); Calc. Creatinine Clearance 0 mL/min (70-130); Calcium 8.7 mg/dL (7.8-10.44); Carbon Dioxide 23 mmol/L (23-31); Chloride 109 mmol/L (98-107); Globulin 2.8 g/dL (2.4-3.5); Glucose 160 mg/dL (83-110); Potassium 3.8 mmol/L (3.5-5.1); Sodium 139 mmol/L (136-145)
== END 2025-05-22 01:16 ==
LOC: ERS 21:03
DX: R41.82 Altered mental status, unspecified (principal); I25.10 Atherosclerotic heart disease of native coronary artery without angina pectoris; I10 Essential (primary) hypertension; Z86.73 Personal history of transient ischemic attack (TIA), and cerebral infarction without residual deficits; E78.5 Hyperlipidemia, unspecified; Z79.899 Other long term (current) drug therapy
CPT/HCPCS: 70450; 70496; 70498; 71045; 80053; 84484; 85025; 93005; J2060; 96374; Q9967

== ENCOUNTER 2025-06-09 18:43 | Emergency (ER) | payer MEDICARE, OTHER ==
[2025-06-09 20:53] LABS: #Basophils Less than 0.03 10x3/uL (0.0-0.2); #Eosinophils 0.20 10x3/uL (0.0-0.7); #Monocytes 0.39 10x3/uL (0.11-0.59); #Neutrophils 2.33 10x3/uL (1.40-6.50); %Basophils 0.5 % (0.0-1.0); %Eosinophils 4.5 % (0.0-10.0); %Lymphocytes 33.4 % (21.0-51.0); %Monocytes 8.8 % (0.0-10.0); %Neutrophils 52.6 % (42.0-75.0); Hematocrit 45.4 % (42.0-52.0); Hemoglobin 15.1 g/dL (14.0-18.0); Mean Corpuscular Hemoglobin 31.9 pg (27.0-31.0); Mean Corpuscular Volume 96.0 fL (78.0-98.0); Platelet Count 62 10x3/uL (130-400); Red Blood Cell (RBC) Count 4.73 mill/uL (4.70-6.10); White Blood Cell (WBC) Count 4.43 10x3/uL (4.8-10.8)
[2025-06-09 21:09] LABS: ALT (SGPT) 75 U/L (Less than 45); AST (SGOT) 57 U/L (11-34); Albumin 3.7 g/dL (3.1-4.5); Alkaline Phosphatase 79 U/L (40-110); Anion Gap 12 mmol/L (10-20); BUN (Urea Nitrogen) 23 mg/dL (8.4-25.7); Bilirubin, Total 0.6 mg/dL (0.3-1.2); Calc. Creatinine Clearance 0 mL/min (70-130); Calcium 9.2 mg/dL (7.8-10.44); Carbon Dioxide 20 mmol/L (23-31); Chloride 108 mmol/L (98-107); Globulin 3.0 g/dL (2.4-3.5); Glucose 138 mg/dL (83-110); Potassium 4.1 mmol/L (3.5-5.1); Sodium 136 mmol/L (136-145)
[2025-06-09 22:11] LABS: Bacteria/HPF None Seen HPF (None Seen); CAUTI Indications for Culture Acute Hematuria; Glucose, Urine (Dipstick) Greater than 1000 mg/dL (Negative); Leukocyte Negative Leu/uL (Negative); Protein, Urine (Dipstick) Negative (Neg-Trace); RBC/HPF 0-3 HPF (0-3); Specific Gravity, Urine 1.024 (1.002-1.036); WBC/HPF 0-3 HPF (0-3)
[2025-06-09 22:26] LABS: Urine Culture Reflex No No
== END 2025-06-09 23:08 | disposition home or self-care (01) ==
LOC: ERS 18:43
DX: R35.0 Frequency of micturition (principal); R31.9 Hematuria, unspecified; I25.10 Atherosclerotic heart disease of native coronary artery without angina pectoris; I10 Essential (primary) hypertension; E11.9 Type 2 diabetes mellitus without complications
CPT/HCPCS: 36415; 74176; 80053; 81001; 85025